=== PATIENT | female | born 1995 | race Caucasian/White ===

== ENCOUNTER → 2016-09-12 | Outpatient (CLI) | payer OTHER ==
[2016-09-16 21:07] LABS: DIA MOM 0.61 (.); DIA VALUE 137.7 pg/mL (.); HCG VALUE 48.8 IU/mL (.); NUCHAL TRANSLUCENCY 1.6 mm (.); NUCHAL TRANSLUCENCY MOM 0.81 (.); NUMBER OF FETUSES 1 (.); PAPP-A MOM 0.59 (.); PAPP-A VALUE 538.1 ng/mL (.); SONOGRAPHER ID# P10570 (.); TEST RESULTS FIRRES2 *Screen Negative* (.)
[2016-09-17 07:17] LABS: TRISOMY 18 Screening Risk: (.)
== END ==
LOC: OD 16:51
PROVIDERS: ATTEND Specialist
DX: Z36 Encounter for antenatal screening of mother (principal)
CPT/HCPCS: 36415; 84163; 84702; 86336